=== PATIENT | male | born 1950 | race Caucasian/White ===

== ENCOUNTER 2017-06-03 15:46 | Inpatient (IN) | payer MEDICARE, BC ==
[2017-06-03 16:07] LABS: Hematocrit 36.2 % (42.0-52.0); Hemoglobin 12.1 gm/dL (13.5-18.0); Mean Cell Volume 100.8 fl (78-100); Mean Corpuscular Hemoglobin 33.7 pg (27-31); Mean Corpuscular Hgb Conc 33.4 g/dl (32-36); Mean Platelet Volume 10.5 fl (6.0-9.5); Neutrophil # 6.1 K/mm3 (1.3-6.0); Neutrophil % 75.9 % (42-75.0); Platelet Count 69 K/mm3 (150-450); Red Blood Count 3.59 M/mm3 (4.7-6.0); Red Cell Distribution Width 14.9 % (11.5-14.0)
--- OUTSIDE RECORDS SUMMARY | 2017-06-03 16:17 | XMS REPORT | CCD ---
:1950 Author Organization [facility] Allergies, Adverse Reactions, Alerts Substance Reaction Status povidone iodine topical Active Medications Medication Instructions Start Date End Date Status Vitamin D 50,000 intl units 1 cap(s) ( 50,000 International Unit ), po, Instructions: takes on 1st and 15th every month, 0 Refill(s), Type: Maintenance 11/11/2010 Ordered (1.25 mg) oral capsule takes on and 15th every month levothyroxine 150 mcg (0.15 1 tab(s) ( 0.15 mg ), po, 11/11/2010 Ordered mg) oral tablet daily, 0 Refill(s), Type: Maintenance Crestor 10 mg oral tablet 1 tab(s) ( 10 mg ), po, hs, 11/11/2010 Ordered 0 Refill(s), Type: Maintenance probenecid 500 mg oral tablet 2 tab(s) ( 1,000 mg ), po, 11/11/2010 Ordered bid, 0 Refill(s), Type: Maintenance Diovan HCT 160 mg-12.5 mg 1 tab(s), po, daily, 0 11/11/2010 Ordered oral tablet Refill(s), Type: Maintenance Vital Signs Most recent to oldest [Reference Range]: 1 2 Height 71.25 in (11/11/2010 09:40:00) Weight 252.60 lb (11/11/2010 09:40:00) Body Mass Index 34.98 kg/m2 (11/11/2010 09:40:00) Temperature Oral [96.4-99.1 DegF] 98.3 DegF (11/11/2010 09:40:00) Systolic Blood Pressure [90-140 mmHg] 158 mmHg 170 mmHg *HI* *HI* (11/11/2010 09:53:00) (11/11/2010 09:40:00) Diastolic Blood Pressure [60-90 mmHg] 90 mmHg 88 mmHg (11/11/2010 09:53:00) (11/11/2010 09:40:00) Mean Arterial Pressure 115 mmHg (11/11/2010 09:40:00) Peripheral Pulse Rate [60-100 bpm] 80 bpm (11/11/2010 09:40:00) Respiratory Rate [14-20 br/min] 20 br/min (11/11/2010 09:40:00) Allergies Verified? Yes (11/11/2010 09:40:00) Medication History Verified? Yes (11/11/2010 09:40:00) Medical History Verified? Yes (11/11/2010 09:40:00)
[2017-06-03 16:20] LABS: Albumin * 3.3 gm/dl (3.4-5.0); Anion Gap 16.1 mmol/L (6.8-13.8); BUN/Creatinine Ratio 12.1 (9.0-21.6); Bilirubin, Total 1.6 mg/dL (0.0-1.1); Ca. Corrected For Albumin 9.1 mg/dL (8.4-10.2); Calcium * 8.9 mg/dL (7.9-10.9); Carbon Dioxide 23.1 mmol/L (24-32.6); Potassium 4.2 mmol/L (3.4-4.6); Total Protein 6.8 gm/dL (6.2-8.2)
--- OUTSIDE RECORDS SUMMARY | 2017-06-03 17:18 | XMS REPORT | CCD ---
:1950 Author Organization [facility] Allergies, Adverse Reactions, Alerts Substance Reaction [...]
--- NOTE | 2017-06-03 17:23 | ERNOTE ---
Lower Extremity HPI - Narrative Date of Service: 06/03/17 - General Lower Extremities Pain: hip: left Time Seen by Provider: 06/03/17 16:00 Source: patient, EMS - patient fell twice today, unable to walk after second fall, left hip pain, EMS notes reviewed Exam Limitations: no limitations - Immun/Allergies/Home Medications Immunizations: IMMUNIZATION HX Immunizations Up to Date Yes History of Influenza Vaccine No Allergies/Adverse Reactions: Allergies Allergy/AdvReac Type Severity Reaction Status Date / Time adhesive Allergy Verified 06/03/17 16:15 iodine Allergy Verified 06/03/17 16:14 felodipine [From Plendil] AdvReac Verified 06/03/17 16:15 indomethacin AdvReac Verified 06/03/17 16:14 lorazepam [From Ativan] AdvReac Verified 06/03/17 16:14 meclizine AdvReac Verified 06/03/17 16:15 tizanidine AdvReac Verified 06/03/17 16:15 Home Medications: HOME MEDICATIONS Allopurinol [Zyloprim] 300 mg PO DAILY 06/03/17 [Last Taken Unknown] Aspirin 81 mg PO DAILY 06/03/17 [Last Taken Unknown] Diazepam [Valium] 5 - 10 mg PO TID PRN 06/03/17 [Last Taken Unknown] Fluocinonide/Emollient Base [Fluocinonide-E 0.05% Cream] 1 dose TP 06/03/17 [ Last Taken Unknown] Furosemide [Lasix] 40 mg PO BID 06/03/17 [Last Taken Unknown] Levothyroxine Sodium [Synthroid] 200 mcg PO DAILY 06/03/17 [Last Taken Unknown] Metoprolol Succinate [Toprol Xl] 100 mg PO DAILY 06/03/17 [Last Taken Unknown] Rosuvastatin Calcium [Crestor] 10 mg PO DAILY 06/03/17 [Last Taken Unknown] Sodium Bicarbonate 1,950 mg PO BID 06/03/17 [Last Taken Unknown] Ubidecarenone [Co Q-10] 10 mg PO DAILY 06/03/17 [Last Taken Unknown] Valsartan [Diovan] 320 mg PO DAILY 06/03/17 [Last Taken Unknown] Vitamin B12 06/03/17 [Last Taken Unknown] Vitamin D2 06/03/17 [Last Taken Unknown] oxyCODONE HCL/ACETAMINOPHEN [Oxycodone-Acetaminophen 5-325] 1 each PO QID PRN [Last Taken Unknown] - History of Present Illness Narrative: patient fell twice at home. has left hip pain Occurred: just prior to arrival Location of Incident: home Method of Injury: Reports: fell Reason for Fall: Reports: lost balance Loss of Consciousness: Reports: no loss of consciousness Modifying Factors - (Improves): Reports: other - nothhing Associated Symptoms: Reports: unable to bear weight, snapping, popping sensation , dizzy/light headedness Other Injuries: Reports: none Review of Systems - Review of Systems Constitutional: Present: weakness, fatigue EYE: Present: no symptoms reported ENT: Present: no symptoms reported Respiratory: Present: no symptoms reported Cardiology: Present: no symptoms reported Gastrointestinal/Abdominal: Present: no symptoms reported Genitourinary: Present: no symptoms reported Musculoskeletal: Present: See HPI, joint pain, other - paiin in left hip Skin: Present: no symptoms reported Neurological: Present: no symptoms reported Endocrine: Present: no symptoms reported Hematologic/Lymphatic: Present: no symptoms reported Psych: Present: no symptoms reported - Patient's Past Medical History Patient History - Medical: Arthritis, Hypothyroidism, Renal Failure Patient History - Cardiac/Respiratory: CVA/Stroke, Hypertension Patient History - Cancer: No Hx of Cancer Patient History - Surgical Procedures: Cataracts, Colonoscopy, EGD, Total Knee Replacement, Vasectomy, Hernia Repair Patient History - Other: None - Family History Family History:: no untoward family reactions to anesthesia, no familial bleeding tendencies - Family History Father Family History - Medical: Family History - Cardiac/Respiratory: No pertinent hx Family History - Cancer: No pertinent family hx Mother Family History - Medical: , Alzheimer's Disease Family History - Cardiac/Respiratory: No pertinent hx Family History - Cancer: No pertinent family hx - Social History Living Situations: home Psych History: No pertinent hx Smoking Status: Never smoker Have you smoked in the past 12 months: No Alcohol Use: rarely Drug Use: none - Immunizations Immunizations Up to Date: Yes History of Influenza Vaccine: No Physical Exam - Physical Exam General Appearance: Present: alert, moderate distress Head Exam: Present: normal inspection, no evidence of injury Eye Exam: Normal inspection: bilateral, PERRL: bilateral, EOMI: bilateral Ears, Nose, Throat: Present: normal ENT inspection Neck: Present: normal inspection, nontender Respiratory: Present: no respiratory distress, normal breath sounds, no accessory muscle use, chest nontender, lungs clear Cardiovascular/Chest: Present: regular rate, rhythm, no murmur, normal peripheral pulses Peripheral Pulses: N=norm/S=strong/W=weak/B=bound/A=absent: Carotid (R): Normal , Carotid (L): Normal, Radial (R): Normal, Radial (L): Normal, Femoral (R): Normal, Femoral (L): Normal, Dorsalis-pedis (R): Normal, Dorsalis-pedis (L): Normal Gastrointestinal/Abdominal: Present: normal bowel sounds, nontender, nondistended, soft, no organomegaly Back Exam: Present: normal inspection, normal range of motion, no CVA tenderness Extremity Exam: Present: normal inspection, non-tender, normal range of motion, no edema Neurological Exam: Present: alert, oriented, normal mood/affect, no motor/ sensory deficits DTR: N=norm/NB=norm/brisk/A=abs/DD=dull/dimin/HC=hyperactive: Bicep (R): Normal , Bicep (L): Normal, Tricep (R): Normal, Tricep (L): Normal, Knee (R): Normal, Knee (L): Normal, Ankle (R): Normal, Ankle (L): Normal ED Progress - Results and Orders Patient's Lab Results:: I have reviewed the patient's lab results. - Vital Signs Patient's Vital Signs:: I have reviewed the patient's vital signs. Vital Signs: Vital Signs 06/03/17 15:49 Temperature 37.3 C Pulse Rate 72 Respiratory 18 Rate Blood Pressure 153/77 O2 Sat by Pulse 99 Oximetry - Progress/Reassessment Chief Complaint: Hip Pain/Injury Progress:: Unchanged - case discussed with dr faith and attending dr moore to be admitted - Transfer of Care Expected Disposition: Admit - dr moore Departure Clinical Impression: Hip fracture, intertrochanteric - Departure Disposition: [facility] Condition: Fair Referrals: Nanda Moore DO [Primary Care Provider] -
[2017-06-03] MEDS ORDERED: ONDANSETRON HCL/PF 2 MG/ML VIAL IV PRN (19:48)
--- NOTE | 2017-06-03 20:24 | HP ---
Chief Complaint - Chief Complaint Date of Service: 06/03/17 Time of Service: 19:51 Chief Complaint: " Fall, LT hip pain,". Source of HPI- Pt; reliable, ER provider notes. History of Present Illness: Mr. Caal is a 67-yr-old WM pt of Dr. Nanda Moore with a PMH of: Athritis, CVA, CKD stage IV, Degenerative Disc Disease, Gout, Hypothyroidism, Peripheral Neuropathy,Spinal Stenosis, & Thrombocytopenia. Pt states that he tripped on his foot while walking at home leading him to fall. He landed on the LT side of body. He denies his head hitting surface or any object and there was no loss of consciousness. EMS was called and he was brought to [facility] ER. At the ED, the Hip/Pelvis X-ray film showed he sustained a LT hip fracture. Orthopedic Surgeon , (), was consulted by the ERP and he plans to perform surgical repair tomorrow. Pt denies fevers, chills. He also denies N/V,Abd. Pain, chest pain & SOB. He will need to be admitted inpatient for a minimum of 2 midnights due to the need for surgical procedure that requires pre & post operative management. - Patient's Past Medical History Patient History - Medical: Arthritis, Hypothyroidism, Renal Failure, Other - CKD stage IV, Degenerative Disc Disease, Gout, Hypothyroidism, Peripheral Neuropathy,Spinal Stenosis, & Thrombocytopenia. Patient History - Cardiac/Respiratory: CVA/Stroke, Hypertension Patient History - Cancer: No Hx of Cancer Patient History - Surgical Procedures: Cataracts, Colonoscopy, EGD, Total Knee Replacement, Vasectomy, Hernia Repair Patient History - Other: None - Family History Family History:: no untoward family reactions to anesthesia, no familial bleeding tendencies - Family History Father Family History - Medical: Family History - Cardiac/Respiratory: No pertinent hx Family History - Cancer: No pertinent family hx Mother Family History - Medical: , Alzheimer's Disease Family History - Cardiac/Respiratory: No pertinent hx Family History - Cancer: No pertinent family hx - Social History Living Situations: home Psych History: No pertinent hx Smoking Status: Never smoker Have you smoked in the past 12 months: No Do you dip or chew tobacco: No Alcohol Use: rarely Drug Use: none - Immunizations Immunizations Up to Date: Yes History of Influenza Vaccine: No Review Of Systems (GEN) - Review of Systems Generalized/Overall Review: Absent: Weakness, Chills, Fever, Malaise EENTM: Absent: Eye Pain, Blurred Vision, Double Vision Respiratory: Absent: Cough, Shortness of Breath, Orthopnea Cardiac: Absent: Chest Pain, Edema, Palpitations Abdominal: Absent: Nausea, Vomiting, Hematemesis, Abdominal Pain, Constipation, Diarrhea, Melena Genitourinary: Absent: Burning, Itching, Urgency, Hesitancy Musculoskeletal: Present: Joint Pain, Back Pain, Joint Swelling. Absent: Muscle Pain Neurological: Absent: Headache, Anxiety, Depressed, Emotional Problems, Weakness Skin: Absent: Dryness, Lesions Endocrine: Absent: Intolerance to Cold, Flushing, Increased Thirst Misc: All systems neg except as marked Immunizations: IMMUNIZATION HX Immunizations Up to Date Yes History of Influenza Vaccine No Allergies/Adverse Reactions: Allergies Allergy/AdvReac Type Severity Reaction Status Date / Time adhesive Allergy Verified 06/03/17 16:15 iodine Allergy Verified 06/03/17 16:14 felodipine [From Plendil] AdvReac Verified 06/03/17 16:15 indomethacin AdvReac Verified 06/03/17 16:14 lorazepam [From Ativan] AdvReac Verified 06/03/17 16:14 meclizine AdvReac Verified 06/03/17 16:15 tizanidine AdvReac Verified 06/03/17 16:15 Home Medications: HOME MEDICATIONS Allopurinol [Zyloprim] 300 mg PO DAILY 06/03/17 [Last Taken Unknown] Aspirin 81 mg PO DAILY 06/03/17 [Last Taken Unknown] Cyanocobalamin (Vitamin B-12) [Vitamin B12] 2,500 mcg PO 3XW 06/03/17 [Last Taken Unknown] Diazepam [Valium] 5 - 10 mg PO TID PRN 06/03/17 [Last Taken Unknown] Ergocalciferol (Vitamin D2) [Vitamin D2] 50,000 unit PO Q14D 06/03/17 [Last Taken Unknown] Fluocinonide/Emollient Base [Fluocinonide-E 0.05% Cream] 1 dose TP BID 06/03/17 [Last Taken Unknown] Furosemide [Lasix] 40 mg PO BID 06/03/17 [Last Taken Unknown] Levothyroxine Sodium [Synthroid] 200 mcg PO DAILY 06/03/17 [Last Taken Unknown] Metoprolol Succinate [Toprol Xl] 100 mg PO DAILY 06/03/17 [Last Taken Unknown] Rosuvastatin Calcium [Crestor] 10 mg PO DAILY 06/03/17 [Last Taken Unknown] Sodium Bicarbonate 1,950 mg PO BID 06/03/17 [Last Taken Unknown] Ubidecarenone [Co Q-10] 10 mg PO 3XW 06/03/17 [Last Taken Unknown] Valsartan [Diovan] 320 mg PO DAILY 06/03/17 [Last Taken Unknown] oxyCODONE HCL/ACETAMINOPHEN [Oxycodone-Acetaminophen 5-325] 1 each PO QID PRN [Last Taken Unknown] Exam - Exam Vital Signs: Vital Signs - Last Taken Temp 37.2 C 06/03/17 18:36 Pulse 68 06/03/17 18:36 Resp 16 06/03/17 18:36 BP 158/80 06/03/17 18:36 Pulse Ox 97 06/03/17 18:36 Constitutional: Present: Alert, Oriented x3, Cooperative, No distress ENT Exam: Present: normal ENT inspection, hearing grossly normal, dry mucous membranes. Absent: nasal drainage, pharyngeal erythema Eye Exam: bilateral eye: normal inspection, PERRL Neck: Present: non-tender, full range of motion, supple Back Exam: Present: normal inspection, no CVA tenderness Breasts: Present: Exam deferred Respiratory: Present: lungs clear Cardiovascular/Chest: Present: regular rate, rhythm, no chest tenderness, no JVD , systolic murmur Abdomen: Present: Normal bowel sounds, soft, nontender /Rectal: Present: Exam deferred Extremity: Present: lower extremity edema - Non-pitting BLE Edema, leg pain - Limited ROM on LLE Skin Exam: Present: warm/dry, no cyanosis Lymphatic: Present: no adenopathy Neurologic: Present: no motor/sensory deficits, alert, normal mood/affect, oriented x 3 Appearance: Present: appropriate appearance, appropriate insight Eye contact: Present: cooperative, good eye contact, normal speech Thoughts: Present: normal thought pattern, no apparent hallucination Diagnostic Studies: Laboratory Results WBC 8.0 K/mm3 (4.0-10.5) 06/03/17 16:02 RBC 3.59 M/mm3 (4.7-6.0) L 06/03/17 16:02 Hgb 12.1 gm/dL (13.5-18.0) L 06/03/17 16:02 Hct 36.2 % (42.0-52.0) L 06/03/17 16:02 MCV 100.8 fl (78-100) H 06/03/17 16:02 MCH 33.7 pg (27-31) H 06/03/17 16:02 MCHC 33.4 g/dl (32-36) 06/03/17 16:02 RDW 14.9 % (11.5-14.0) H 06/03/17 16:02 Plt Count 69 K/mm3 (150-450) L 06/03/17 16:02 MPV 10.5 fl (6.0-9.5) H 06/03/17 16:02 Immature Gran % (Auto) 0.60 % (0.001-0.429) H 06/03/17 16:02 Immature Gran # (Auto) 0.05 K/mm3 (0.000-0.0310) H 06/03/17 16:02 Neutrophils % 75.9 % (42-75.0) H 06/03/17 16:02 Lymphocytes % 9.0 % (20-51) L 06/03/17 16:02 Monocytes % 12.0 % (0.0-9) H 06/03/17 16:02 Eosinophils % 2.4 % (0.0-3.0) 06/03/17 16:02 Basophils % 0.1 % (0.0-1.0) 06/03/17 16:02 Nucleated RBC % 0.0 k/mm3 (0-1) 06/03/17 16:02 Neutrophils # 6.1 K/mm3 (1.3-6.0) H 06/03/17 16:02 Lymphocytes # 0.7 k/mm3 (1.5-3.5) L 06/03/17 16:02 Monocytes # 1.0 k/mm3 (0.0-1.0) 06/03/17 16:02 Eosinophils # 0.2 k/mm3 (0.0-0.7) 06/03/17 16:02 Absolute Basophils 0.0 k/mm3 (0.0-0.1) 06/03/17 16:02 Sodium 142 mmol/L (132-142) 06/03/17 16:02 Plasma Sodium 142 mmol/L (130-142) 06/03/17 16:02 Potassium 4.2 mmol/L (3.4-4.6) 06/03/17 16:02 Chloride 107 mmol/L (97-106) H 06/03/17 16:02 Carbon Dioxide 23.1 mmol/L (24-32.6) L 06/03/17 16:02 Anion Gap 16.1 mmol/L (6.8-13.8) H 06/03/17 16:02 BUN 28 mg/dL (6-23) H 06/03/17 16:02 Creatinine 2.31 mg/dL (0.4-1.4) H 06/03/17 16:02 Est GFR (Non-Af Amer) 30 mL/min (60-130) L 06/03/17 16:02 BUN/Creatinine Ratio 12.1 (9.0-21.6) 06/03/17 16:02 Random Glucose 119 mg/dL (70-110) H 06/03/17 16:02 Calcium 8.9 mg/dL (7.9-10.9) 06/03/17 16:02 Calcium Adj for Albumin 9.1 mg/dL (8.4-10.2) 06/03/17 16:02 Total Bilirubin 1.6 mg/dL (0.0-1.1) H 06/03/17 16:02 AST 43 U/L (0-48) 06/03/17 16:02 ALT 34 U/L (19-67) 06/03/17 16:02 Alkaline Phosphatase 160 U/L (50-170) 06/03/17 16:02 Total Protein 6.8 gm/dL (6.2-8.2) 06/03/17 16:02 Albumin 3.3 gm/dl (3.4-5.0) L 06/03/17 16:02 Assessment/Plan - Assessment/Plan (1) Fracture of left hip Assessment: Mr. Caal is a 67 yr Male pt who sustained a LT hip fracture following a fall at home. Orthopedic surgeon consulted by the ERP and plans to perform surgery once medically cleared. The EKG obtained at the ED showed NSR. The CXR showed possible increased vascular congestion, but he does not appear SOB. Most of the lab-work results were unremarkable except for elevated BUN/CR and low platelets which are chronic conditions. According to [facility] he is at class IV which is a high risk for a major cardiac event pre/post operatively. However, the benefits of doing surgery outweighs the risk of not doing any, provides him opportunity to return to functional status & therefore, may proceed with surgery as planned. Will provide supportive cares in the meantime with: IVF hydration, pain mgt, Keep NPO, Bedrest activity. Problem: Acute (2) Chronic kidney disease, stage 4, severely decreased GFR Assessment: Is at baseline. Provide IVF hydration. Continue sodium Bicarb. BMP in am. Laboratory Tests 11/22/16 04/29/17 05/20/17 13:21 08:00 07:50 Creatinine 2.45 H 2.27 H 2.36 H 06/02/17 06/03/17 13:03 16:02 Creatinine 2.24 H 2.31 H Problem: Chronic (3) Heart failure Assessment: The CXR shows cardiomegaly and possible increased vascular congestion. He is noted to have Bilateral Non -pitting edema. He is not SOB and is already on Lasix PO. Spouse reports the swelling is better. Problem: Suspected (4) HTN (hypertension) Assessment: Stable- Continue Valsartan & Metoprolol. Problem: Chronic Qualifiers: Hypertension type: essential hypertension Qualified Code(s): I10 - Essential (primary) hypertension (5) Gout Assessment: Stable- On Allopurinol. Problem: Chronic (6) CVA (cerebral vascular accident) Assessment: Stable- Continue Aspirin. Problem: Chronic (7) Back pain Problem: Chronic (8) Peripheral neuropathy Problem: Chronic (9) Thrombocytopenia Assessment: Is of unclear etiology. Laboratory Tests 10/14/15 04/05/16 05/04/16 08:00 07:34 12:16 Plt Count 77 L 83 L 79 L 11/01/16 11/22/16 04/29/17 13:12 13:21 08:00 Plt Count 110 L 76 L 77 L 06/03/17 16:02 Plt Count 69 L Problem: Chronic
[2017-06-03] MEDS: HYDROmorphone HCL 1 MG/ML DISP.SYRIN IV PRN ×2 (20:33→22:30)
[2017-06-03] MEDS: NORMAL SALINE 1,000 ML IV PRN (20:34)
[2017-06-03] MEDS ORDERED: DIAZEPAM 5 MG TABLET PO PRN (21:09)
[2017-06-03] MEDS ORDERED: oxyCODONE HCL/ACETAMINOPHEN 1 TAB TABLET PO PRN (21:12)
[2017-06-03] MEDS ORDERED: UBIDECARENONE 10 MG PO SCH (21:15)
[2017-06-03] MEDS: FUROSEMIDE 40 MG TABLET PO SCH (21:45)
[2017-06-03 23:32] LABS: INR 1.07 INR (0.90-1.10); Partial Thrombolplastin Time 29.2 Seconds (24-32); Prothrombin Time (Patient) 11.1 Seconds (9.4-11.4)
[2017-06-04] MEDS: HYDROmorphone HCL 1 MG/ML DISP.SYRIN IV PRN ×3 (00:02→06:41)
[2017-06-04] MEDS: NORMAL SALINE 1,000 ML IV PRN (05:28)
[2017-06-04] MEDS ORDERED: TRANEXAMIC ACID 1,000 MG in NORMAL SALINE 100 ML IV PRN (06:00)
[2017-06-04 06:12] LABS: Hematocrit 36.5 % (42.0-52.0); Hemoglobin 11.7 gm/dL (13.5-18.0); Mean Cell Volume 104.6 fl (78-100); Mean Corpuscular Hemoglobin 33.5 pg (27-31); Mean Corpuscular Hgb Conc 32.1 g/dl (32-36); Mean Platelet Volume 11.9 fl (6.0-9.5); Neutrophil # 6.4 K/mm3 (1.3-6.0); Neutrophil % 70.3 % (42-75.0); Platelet Count 78 K/mm3 (150-450); Red Blood Count 3.49 M/mm3 (4.7-6.0); Red Cell Distribution Width 15.4 % (11.5-14.0); White Blood Count 9.1 K/mm3 (4.0-10.5)
[2017-06-04 06:32] LABS: Anion Gap 13.9 mmol/L (6.8-13.8); BUN/Creatinine Ratio 12.4 (9.0-21.6); Calcium * 8.5 mg/dL (7.9-10.9); Carbon Dioxide 25.3 mmol/L (24-32.6); Estimated Creat Clear 34.1; Potassium 4.2 mmol/L (3.4-4.6)
[2017-06-04] MEDS: LEVOTHYROXINE SODIUM 100 MCG TABLET PO SCH (07:00)
[2017-06-04] MEDS ORDERED: ceFAZolin SODIUM/DEXTROSE,ISO 2 GM/50 ML BAG IV ONE (07:10)
[2017-06-04] MEDS ORDERED: ceFAZolin SODIUM 1 GM/10 ML ML IV PRN (07:16)
--- NOTE | 2017-06-04 07:38 | CONS ---
HPI - General Date of Service: 06/04/17 Narrative: Mr. Caal is a 67 yo M who sustained a displaced L femoral neck fracture after a mechanical fall on the sidewalk. He is a community ambulator who lives at home with his . He presented to the [facility] ED for evaluation which revealed the above injury. He was admitted to the hospital with plan for surgery this morning. - History of Present Illness Allergies/Adverse Reactions: Allergies adhesive Allergy (Verified 06/03/17 16:15) iodine Allergy (Verified 06/03/17 16:14) felodipine [From Plendil] Adverse Reaction (Verified 06/03/17 16:15) indomethacin Adverse Reaction (Verified 06/03/17 16:14) lorazepam [From Ativan] Adverse Reaction (Verified 06/03/17 16:14) meclizine Adverse Reaction (Verified 06/03/17 16:15) tizanidine Adverse Reaction (Verified 06/03/17 16:15) Home Medications: Home Medications Medication Instructions Recorded Last Taken Allopurinol [Zyloprim] 300 mg PO DAILY 06/03/17 Unknown Aspirin 81 mg PO DAILY 06/03/17 Unknown Cyanocobalamin (Vitamin B-12) 2,500 mcg PO 3XW 06/03/17 Unknown [Vitamin B12] Diazepam [Valium] 5 - 10 mg PO TID PRN 06/03/17 Unknown Ergocalciferol (Vitamin D2) 50,000 unit PO Q14D 06/03/17 Unknown [Vitamin D2] Fluocinonide/Emollient Base 1 dose TP BID 06/03/17 Unknown [Fluocinonide-E 0.05% Cream] Furosemide [Lasix] 40 mg PO BID 06/03/17 Unknown Levothyroxine Sodium [Synthroid] 200 mcg PO DAILY 06/03/17 Unknown Metoprolol Succinate [Toprol Xl] 100 mg PO DAILY 06/03/17 Unknown Rosuvastatin Calcium [Crestor] 10 mg PO DAILY 06/03/17 Unknown Sodium Bicarbonate 1,950 mg PO BID 06/03/17 Unknown Ubidecarenone [Co Q-10] 10 mg PO 3XW 06/03/17 Unknown Valsartan [Diovan] 320 mg PO DAILY 06/03/17 Unknown oxyCODONE HCL/ACETAMINOPHEN 1 each PO QID PRN 06/03/17 Unknown [Oxycodone-Acetaminophen 5-325] - Patient's Past Medical History Patient History - Medical: Arthritis, Hypothyroidism, Renal Failure, Other - CKD stage IV, Degenerative Disc Disease, Gout, Hypothyroidism, Peripheral Neuropathy,Spinal Stenosis, & Thrombocytopenia. Patient History - Cardiac/Respiratory: CVA/Stroke, Hypertension Patient History - Cancer: No Hx of Cancer Patient History - Surgical Procedures: Cataracts, Colonoscopy, EGD, Total Knee Replacement, Vasectomy, Hernia Repair Patient History - Other: None - Family History Family History:: no untoward family reactions to anesthesia, no familial bleeding tendencies - Family History Father Family History - Medical: Family History - Cardiac/Respiratory: No pertinent hx Family History - Cancer: No pertinent family hx Mother Family History - Medical: , Alzheimer's Disease Family History - Cardiac/Respiratory: No pertinent hx Family History - Cancer: No pertinent family hx - Social History Living Situations: home Abuse History: No History of abuse Psych History: No pertinent hx Smoking Status: Never smoker Have you smoked in the past 12 months: No Do you dip or chew tobacco: No Alcohol Use: rarely Drug Use: none - Immunizations Immunizations Up to Date: Yes History of Influenza Vaccine: No Procedures CLOSED ENDOSCOPIC BIOPSY OF LARGE INTESTINE (07/14/05) ENDOSC POLYPECTOMY OF LG INTEST (09/04/08) OTHER OPEN UMBILICAL HERNIORRHAPHY (11/09/11) Medications - Medications Current Medications: Current Medications Furosemide (Lasix) 40 mg PO BID [id number] Stop: 07/03/17 21:16 Last Admin: 06/03/17 21:45 Dose: Not Given Hydromorphone HCl (Dilaudid) 0.5 mg IV Q1H PRN PRN Reason: Mild pain Stop: 07/03/17 19:48 Last Admin: 06/04/17 06:41 Dose: 0.5 mg Sodium Chloride (Sodium Chloride 0.9%) 1,000 mls @ 100 mls/hr IV .Q10H PRN PRN Reason: HYDRATION Stop: 07/03/17 19:49 Last Admin: 06/04/17 05:28 Dose: 100 mls/hr Ondansetron HCl (Zofran) 4 mg IV Q4H PRN PRN Reason: Nausea Stop: 07/03/17 19:49 Last Admin: 06/04/17 03:09 Dose: 4 mg Physical Examination - Exam Narrative: Gen: A&Ox3, NAD Resp: breathing non-labored on RA MSK: LLE--> shortened and externally rotated, TTP about hip, SILT, 5/5 EHL/FHL/ DF/PF, palpable DP/PT Radiology: Plain films of the L hip and AP pelvis from the ED demonstrate a displaced midcervical femoral neck fracture on the left. Mild DJD of both hips. Vital Signs: Vital Signs - Last Taken Temp 36.3 C L 06/04/17 07:16 Pulse 70 06/04/17 07:16 Resp 18 06/04/17 07:16 BP 160/70 06/04/17 07:16 Pulse Ox 95 06/04/17 07:16 O2 Oxygen Delivery Method Room Air - Results and Findings: Narrative: 67 yo M community ambulator with displaced L femoral neck fracture. - Discussed treatment options with the patient and his . Based on the fracture pattern, his age, and his activity level, I recommended left total hip arthroplasty. I discussed the risks of surgery in detail today including, but not limited to, infection, bleeding, neurovascular injury, intraoperative fracture, implant failure/loosening, persistent pain, stiffness, leg length discrepancy, wound complications, DVT/PE, and risks with anesthesia. After discussion, he would like to proceed with L total hip arthroplasty. Informed consent obtained. - Proceed with L total hip arthroplasty this am - 2g ancef pre-op - admit back to Med/Surg postoperatively - continue Medicine co-management Lab/Microbiology results last 24 hrs: Abnormal/Pending Laboratory Last 24 HRS 06/04/17 06/04/17 05:30 05:30 RBC 3.49 L Hgb 11.7 L Hct 36.5 L MCV 104.6 H MCH 33.5 H RDW 15.4 H Plt Count 78 L MPV 11.9 H Immature Gran % (Auto) 0.50 H Immature Gran # (Auto) 0.05 H Lymphocytes % 9.7 L Monocytes % 12.1 H Eosinophils % 7.2 H Neutrophils # 6.4 H Lymphocytes # 0.9 L Monocytes # 1.1 H Chloride 107 H Anion Gap 13.9 H BUN 27 H Creatinine 2.18 H Est GFR (Non-Af Amer) 32 L Random Glucose 131 H - Assessments/Findings (1) Fracture of left hip Problem: Acute
[2017-06-04] MEDS: METOPROLOL SUCCINATE 100 MG TABLET.SA PO SCH ×2 (07:41→09:00)
[2017-06-04] MEDS ORDERED: NORMAL SALINE 1,000 ML IV ONE ×3 (07:55→10:00)
[2017-06-04] MEDS ORDERED: RINGER'S SOLUTION,LACTATED 1,000 ML IV ONE (08:45)
[2017-06-04] MEDS ORDERED: ASPIRIN 81 MG TAB.CHEW PO SCH (09:00)
[2017-06-04] MEDS: FLUOCINONIDE 15 APPL TUBE TP SCH ×2 (09:00→20:16)
[2017-06-04] MEDS: FUROSEMIDE 40 MG TABLET PO SCH ×2 (09:00→20:19)
[2017-06-04] MEDS: SODIUM BICARBONATE 650 MG TABLET PO SCH ×2 (09:00→20:17)
[2017-06-04] MEDS ORDERED: MAG HYDROX/ALUMINUM HYD/SIMETH 30 ML UDC PO PRN (10:57)
[2017-06-04] MEDS ORDERED: ONDANSETRON HCL/PF 2 MG/ML VIAL IV PRN (10:57)
[2017-06-04] MEDS ORDERED: MAGNESIUM HYDROXIDE 30 ML UDC PO PRN (10:57)
[2017-06-04] MEDS ORDERED: PROMETHAZINE HCL 5 MG in DEXTROSE 5 % IN WATER 50 ML IV PRN ×2 (10:57)
[2017-06-04] MEDS ORDERED: ACETAMINOPHEN 500 MG TABLET PO PRN (10:57)
[2017-06-04] MEDS ORDERED: MORPHINE SULFATE 2 MG/ML DISP.SYRIN IV PRN (10:57)
--- NOTE | 2017-06-04 11:13 | OR ---
Operative Report - Dictated Report Narrative: Date: 06/04/2017 Preoperative diagnosis: Closed left hip displaced femoral neck fracture. Postoperative diagnosis: Closed left hip displaced femoral neck fracture Procedure: Left cemented total hip arthroplasty. Surgeon: Jeremy Viera M.D. Patient Scheduling Manager: Alan David PA-C Anesthesia: Gen. Complications: None Specimens: Bone for disposal, synovial tissue for permanent section Estimated blood loss: 200 milliliters. Retained implants: Depuy [place] size 6 basic cemented femoral stem. Size 58 millimeter ouside diameter 3-hole [place] Gription acetabular cup. 58 millimeter outside by 36 millimeter inside diameter highly cross-linked acetabular liner. 36 millimeter diameter + 12 millimeter cobalt chromium femoral head. Cancellous 6.5mm screw 30 millimeter length. Indications: Bolivar Is a 67-year-old male community ambulator. This patient was evaluated on the floor and found to have sustained a displaced femoral neck fracture. The risks and benefits were discussed with the patient as well as any power of countersinker. Patient wished to proceed with surgical treatment. The risks, benefits, and alternatives discussed were , blood clots, bleeding, infection, nerve/tendon blood vessel/ injury, malposition of components, dislocation and/or instability of joint, intraoperative fracture, postoperative limited range of motion, persistent pain, failure of components, and need for additional procedures. Patient wished to proceed. Consent was obtained after answering all questions. Procedure: After marking the correct extremity on the floor, the patient was taken to the operating room. A timeout was performed. IV antibiotics consisting of 2 g of Ancef were administered prior to the procedure. A general anesthetic was induced by anesthesia. The patient was then transitioned to a lateral position on a well-padded pegboard. And an axillary roll was placed. The head was in neutral position. The non-operative down leg was well-padded with SCD and ALAN hose in place. The arms were supported and padded to protect from any undue pressure on the bony prominences and nerves. Well-padded anterior and posterior pelvic and chest posts were secured in order to maintain a stable position of the pelvis. This was placed so that the pelvis was perpendicular to the floor. The body was in line with the pelvis. Once it was felt that we had protected all the bony prominences and the patient was well secured with a safety belt as well, the leg was pre-scrubbed with alcohol, prepped and draped in a standard sterile fashion. A standard anterior lateral hip incision was marked out over the greater trochanter. [place]an drapes were then placed. The skin incision was then made. Sharp dissection with a scalpel utilizing cautery for hemostasis was carried out down to the gluteus and iliotibial band fascia. This was split in line with the skin incision. The greater trochanter bursa was excised. 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 We also encountered a large amount of proliferative tissue surrounding the chronically torn abductor which was brownish in color. This had an appearance similar to PVNS, so we proceeded to debride as much of this tissue as we could and we sent it for permanent section. Was left of the anterior 1/3 of the tendon was tagged and reflected off the greater trochanter. This exposed the underlying hip joint capsule. An inverted T-type capsulotomy was made extending this up to the brim of the acetabulum. We encountered a hematoma at this point confirming an acute fracture as well as noted displacement of the femoral neck fracture. We did not encounter any more of this proliferative-looking tissue inside the joint. Using Eduar retractors to assist with elevation of the soft tissues off the anterior, superior, and inferior aspects of the femoral neck, the hip was then placed in a figure 4 position and the femoral neck cleanup cut was then made. With the leg in an externally rotated and adducted position, the cutting flag was utilized in order to petra for a standard femoral neck cut approximately a fingerbreadth above the level of the lesser trochanter. This was done while protecting the surrounding soft tissues with Eduar retractors. The femoral head was then removed and sized for guidance on the size of the acetabular shell. It was noted that there was mild loss of articular cartilage on both the femoral head and weightbearing portions of the acetabulum. We then returned the leg to the table and turned our attention to the acetabulum. While protecting the surrounding soft tissues, the labrum and remaining tissue in the fovea were excised using a scalpel and cautery. A series of reamers up to size 57 millimeter were utilized to prepare the acetabulum. The final reamer had good purchase and exposed the bleeding subchondral bone. The acetabulum was then thoroughly irrigated ensuring that all bony and cartilaginous materials were removed and the final acetabular shell was impacted into place. This was placed in approximately 45 degrees of abduction and 20 degrees of anteversion utilizing the outrigger and body axis for alignment. This had a good press fit. One 6.5 x 30mm cancellous screw was placed in the posterior superior quadrant of the acetabulum. The shell was then thoroughly irrigated and the final polyethylene was impacted into place ensuring that it seated completely. This was then protected with a sponge while we returned our attention to the femur. With the leg in a figure 4 position utilizing Eduar retractors for soft tissue protection, a box cutting osteotome, followed by Charnley awl, followed by serial broaches were utilized in order to prepare the femur. It was found that a size 6 broach gave good axial and rotational stability. The proximal femur was visualized to ensure that there were no signs of fracture. A series of heads were trialed. It was found that a + 12 mm femoral head gave good overall stability. There is minimal longitudinal instability. With the leg in the position of sleep the femoral head was well covered. Hip range of motion was able to reach full extension and external rotation to greater than 75 degrees prior to impingement along the posterior acetabulum. The hip was able to be flexed to greater than 90 degrees with internal rotation greater than 60 degrees prior to anterior impingement. The limb lengths were near equal based on comparison to the contralateral side. At this point was felt this was the appropriately sized femoral components as well as neck and femoral head. The trial implants were removed. A canal cement plug was placed distally and the canal was thoroughly irrigated using pulsatile vacuum brush device. The canal was then thoroughly dried with a suction device and canal sponge. Cement was vacuum mixed per the log scaler' s instructions and placed into a cement gun. Cement was then placed in a dry irrigated femur and a moderate cementing technique using a pressurizing device. The stem was then placed in the appropriate version compared to her lower brule anatomy and held in place while the cement cured and the extruded cement was removed. Once the cement was fully cured we ensured that the stem was stable and that there were no signs of fracture. The extruded cement was removed, and the joint and the capsule were thoroughly evaluated to ensure there are no cement fragments. Once was felt that we adequately removed the extra cement and that the joint was prepared for final implants, the final femoral head was then impacted in the place. The hip was then reduced and seated completely. The capsule was repaired with interrupted #1 Ethibond. What was left of the anterior abductor tendon was repaired to the greater trochanter utilizing #5 Ethibond through drill holes. This was oversewn with #1 Vicryl. The fascia was closed with interrupted #1 Vicryl. The wounds were thoroughly irrigated as we closed in layers. The deep fat layers were closed with 0 Vicryl and the dermis was approximated with interrupted 3-0 Vicryl. The skin was closed with a running subcuticular 3-0 monocryl and a Prineo dressing. All sponge, needle, blade, and instrument counts were correct prior to closing the wounds. Sterile dressings consisting of Xeroform, 4 x 4's, ABD, and tape were applied. The patient was awoken and transferred to his hospital bed and then to the postanesthesia care unit in stable condition. Postoperative condition: The plan is to return to the medical/surgical inpatient floor postoperatively. Postoperatively 24 hours of IV antibiotics, pain control, physical therapy, occupational therapy, and medical comanagement will be utilized. Patient will be weightbearing as tolerated with anterior hip precautions. Postoperative films will be obtained in the recovery room.
[2017-06-04] MEDS: DEXTROSE 5%-LACTATED RINGERS 1,000 ML IV PRN ×2 (11:48→19:47)
[2017-06-04] MEDS: oxyCODONE HCL/ACETAMINOPHEN 1 TAB TABLET PO PRN ×2 (12:14→18:39)
[2017-06-04] MEDS ORDERED: ceFAZolin SODIUM 2 GM in DEXTROSE 5 % IN WATER 100 ML IV SCH ×2 (13:30)
[2017-06-04] MEDS: LOSARTAN POTASSIUM 50 MG TABLET PO SCH (14:31)
[2017-06-04] MEDS: ALLOPURINOL 300 MG TABLET PO SCH (14:32)
[2017-06-04] MEDS: ROSUVASTATIN CALCIUM 10 MG TABLET PO SCH (14:33)
[2017-06-04] MEDS: ceFAZolin SODIUM/DEXTROSE,ISO 2 GM/50 ML BAG IV SCH ×2 (14:36→19:49)
[2017-06-04] MEDS ORDERED: POLYVINYL ALCOHOL 150 DROP BTL EACHEYE PRN (16:14)
[2017-06-04] MEDS: SENNOSIDES/DOCUSATE SODIUM 1 TAB TABLET PO SCH (20:17)
--- NOTE | 2017-06-04 20:42 | PN ---
Subjective - Date and Time Seen Date: 06/04/17 Time: 20:42 Subjective Narrative: Mr. Caal examined. Had LT hip surgery today 06/04. He has no complains. Pain is well controlled. No other issues according to nursing. Objective - Vitals Vitals: Last Vital Signs Temp 36.6 C 06/04/17 19:30 Pulse 68 06/04/17 20:19 Resp 20 06/04/17 19:30 BP 135/76 06/04/17 20:19 Pulse Ox 95 06/04/17 19:30 - Abnormal Lab Findings Abnormal Lab Findings: Abnormal Lab Results 06/04/17 06/04/17 Range/Units 05:30 05:30 RBC 3.49 L (4.7-6.0) M/mm3 Hgb 11.7 L (13.5-18.0) gm/dL Hct 36.5 L (42.0-52.0) % MCV 104.6 H (78-100) fl MCH 33.5 H (27-31) pg RDW 15.4 H (11.5-14.0) % Plt Count 78 L (150-450) K/mm3 MPV 11.9 H (6.0-9.5) fl Immature Gran % (Auto) 0.50 H (0.001-0.429) % Immature Gran # (Auto) 0.05 H (0.000-0.0310) K/mm3 Lymphocytes % 9.7 L (20-51) % Monocytes % 12.1 H (0.0-9) % Eosinophils % 7.2 H (0.0-3.0) % Neutrophils # 6.4 H (1.3-6.0) K/mm3 Lymphocytes # 0.9 L (1.5-3.5) k/mm3 Monocytes # 1.1 H (0.0-1.0) k/mm3 Chloride 107 H (97-106) mmol/L Anion Gap 13.9 H (6.8-13.8) mmol/L BUN 27 H (6-23) mg/dL Creatinine 2.18 H (0.4-1.4) mg/dL Est GFR (Non-Af Amer) 32 L (60-130) mL/min Random Glucose 131 H (70-110) mg/dL - Exam Constitutional: Present: Alert, Oriented x3, Cooperative, No distress ENT Exam: Present: normal ENT inspection, hearing grossly normal Neck: Present: full range of motion, supple, normal inspection Breasts: Present: Exam deferred Respiratory: Present: lungs clear, no accessory muscle use, No wheezing Cardiovascular/Chest: Present: regular rate, rhythm, systolic murmur Abdomen: Present: Normal bowel sounds, soft, nontender, obese /Rectal: Present: Other - Gray Catheter. Extremity: Present: lower extremity edema - Non Pitting BLE, Surgical site intact., other Skin Exam: Present: warm/dry, no cyanosis Neurologic: Present: no motor/sensory deficits, alert, oriented x 3. Absent: dizzy/light-headedness Appearance: Present: appropriate appearance, appropriate insight Eye contact: Present: cooperative, good eye contact, normal speech Thoughts: Present: normal thought pattern, no apparent hallucination Cauti Physician Documentation - Urinary Catheter Management Urethral (Gray) Urethral Indwelling: Yes Reason for Continuing Indwelling Catheter: Surgical Procedure Date of Insertion: 06/03/17 Time of Insertion: 22:28 Assessment/Plan - Problems/Diagnosis (1) Fracture of left hip Problem: Acute Narrative: Had LT hip repair 06/04/17. Follow Ortho recommendation: Anticoagulation, pain control, WBAT, PT/OT, Bowel regimen, Push IS. (2) Chronic kidney disease, stage 4, severely decreased GFR Problem: Chronic Narrative: Is at baseline. Provide gently IVF hydration but monitor for fluid overload. Continue sodium Bicarb. BMP in am. Laboratory Tests 11/22/16 04/29/17 05/20/17 13:21 08:00 07:50 Creatinine 2.45 H 2.27 H 2.36 H 06/02/17 06/03/17 06/04/17 13:03 16:02 05:30 Creatinine 2.24 H 2.31 H 2.18 H (3) Heart failure Problem: Suspected Narrative: Monitor fluid balance closely.The CXR shows cardiomegaly and possible increased vascular congestion. He is noted to have Bilateral Non -pitting edema. He is not SOB and is already on Lasix PO. (4) HTN (hypertension) Problem: Chronic Qualifiers: Hypertension type: essential hypertension Qualified Code(s): I10 - Essential (primary) hypertension Narrative: Stable- Continue Valsartan & Metoprolol (5) Gout Problem: Chronic Narrative: Stable- On Allopurinol. (6) Thrombocytopenia Problem: Chronic Narrative: Is of unclear etiology. Laboratory Tests 10/14/15 04/05/16 05/04/16 08:00 07:34 12:16 Plt Count 77 L 83 L 79 L 11/01/16 11/22/16 04/29/17 13:12 13:21 08:00 Plt Count 110 L 76 L 77 L (7) CVA (cerebral vascular accident) Problem: Chronic Narrative: Stable- On Aspirin & Statin therapy. (8) Back pain Problem: Chronic (9) Peripheral neuropathy Problem: Chronic
[2017-06-05] MEDS: oxyCODONE HCL/ACETAMINOPHEN 1 TAB TABLET PO PRN ×4 (00:52→20:12)
[2017-06-05] MEDS: ceFAZolin SODIUM/DEXTROSE,ISO 2 GM/50 ML BAG IV SCH (01:59)
[2017-06-05 05:55] LABS: Hematocrit 30.8 % (42.0-52.0); Hemoglobin 9.9 gm/dL (13.5-18.0); Mean Corpuscular Hemoglobin 33.1 pg (27-31); Mean Corpuscular Hgb Conc 32.1 g/dl (32-36); Mean Platelet Volume 10.8 fl (6.0-9.5); Platelet Count 68 K/mm3 (150-450); Red Blood Count 2.99 M/mm3 (4.7-6.0); White Blood Count 13.7 K/mm3 (4.0-10.5)
[2017-06-05] MEDS: DEXTROSE 5%-LACTATED RINGERS 1,000 ML IV PRN (05:59)
[2017-06-05 06:06] LABS: Anion Gap 15.4 mmol/L (6.8-13.8); BUN/Creatinine Ratio 10.7 (9.0-21.6); Calcium * 7.9 mg/dL (7.9-10.9); Carbon Dioxide 23.9 mmol/L (24-32.6); Potassium 4.3 mmol/L (3.4-4.6)
[2017-06-05] MEDS: LEVOTHYROXINE SODIUM 100 MCG TABLET PO SCH (06:43)
--- NOTE | 2017-06-05 08:50 | PN ---
Subjective - Date and Time Seen Date: 06/05/17 Subjective Narrative: No events overnight. Pain controlled this am. No complaints. Objective - Vitals Vitals: Last Vital Signs Temp 36.6 C 06/05/17 07:30 Pulse 78 06/05/17 07:30 Resp 18 06/05/17 07:30 BP 146/76 06/05/17 07:30 Pulse Ox 98 06/05/17 07:30 - Abnormal Lab Findings Abnormal Lab Findings: Abnormal Lab Results 06/05/17 06/05/17 Range/Units 05:45 05:45 WBC 13.7 H D (4.0-10.5) K/mm3 RBC 2.99 L (4.7-6.0) M/mm3 Hgb 9.9 L (13.5-18.0) gm/dL Hct 30.8 L (42.0-52.0) % MCV 103.0 H (78-100) fl MCH 33.1 H (27-31) pg RDW 15.0 H (11.5-14.0) % Plt Count 68 L (150-450) K/mm3 MPV 10.8 H (6.0-9.5) fl Plasma Sodium 143 H (130-142) mmol/L Chloride 107 H (97-106) mmol/L Carbon Dioxide 23.9 L (24-32.6) mmol/L Anion Gap 15.4 H (6.8-13.8) mmol/L BUN 24 H (6-23) mg/dL Creatinine 2.25 H (0.4-1.4) mg/dL Est GFR (Non-Af Amer) 31 L (60-130) mL/min Random Glucose 153 H (70-110) mg/dL - Exam Exam Narrative: Gen: A&Ox3, NAD Resp: breathing non-labored on RA MSK: LLE--> dressings c/d/i, / EHL/FHL/DF/PF, SILT, cap refill brisk Cauti Physician Documentation - Urinary Catheter Management Urethral (Gray) Urethral Indwelling: Yes Date of Insertion: 06/03/17 Time of Insertion: 22:28 Assessment/Plan Plan Narrative: 67 yo M w/ displaced L femoral neck fracture s/p L cemented WILLIAM, POD #1. - WBAT, anterior hip precautions - reg diet - oral pain meds - Hgb 9.9 this am, monitor closely - PT/OT - DVT ppx: lovenox/SCDs/teds - continue Medicine co-management - dispo: continue inpatient care - Problems/Diagnosis (1) Fracture of left hip Problem: Acute
[2017-06-05] MEDS: METOPROLOL SUCCINATE 100 MG TABLET.SA PO SCH (09:39)
[2017-06-05] MEDS: ENOXAPARIN SODIUM 40 MG/0.4 ML SYRG SC SCH (09:39)
[2017-06-05] MEDS: SODIUM BICARBONATE 650 MG TABLET PO SCH ×3 (09:40→20:11)
[2017-06-05] MEDS: FUROSEMIDE 40 MG TABLET PO SCH ×2 (09:40→20:10)
[2017-06-05] MEDS: FLUOCINONIDE 15 APPL TUBE TP SCH ×2 (09:40→20:11)
[2017-06-05] MEDS: LOSARTAN POTASSIUM 50 MG TABLET PO SCH (10:24)
[2017-06-05] MEDS: ROSUVASTATIN CALCIUM 10 MG TABLET PO SCH (10:24)
[2017-06-05] MEDS: ALLOPURINOL 300 MG TABLET PO SCH (10:33)
--- NOTE | 2017-06-05 11:12 | PN ---
Subjective - Date and Time Seen Date: 06/05/17 Time: 11:08 Subjective Narrative: Patient seen and examined at bedside. No acute issues overnight. No BM since surgery. Awaiting PT evaluation and treatment and then will remove Gray catheter. Pain adequately controlled at the time of my exam. Objective - Review of Systems Generalized/Overall Review: Reports: No Symptoms Reported EENTM: Reports: No Symptoms Reported Respiratory: Reports: No Symptoms Reported Cardiac: Reports: No Symptoms Reported Abdominal: Reports: No Symptoms Reported Genitourinary Symptoms: Reports: No Symptoms Reported Musculoskeletal Complaints: Reports: Joint Pain - Left hip pain Neurological: Reports: No Symptoms Reported Skin: Reports: No Symptoms Reported Endocrine: Reports: No Symptoms Reported Misc: All systems neg except as marked - Vitals Vitals: Last Vital Signs Temp 37.4 C 06/05/17 10:46 Pulse 72 06/05/17 10:46 Resp 18 06/05/17 10:46 BP 133/64 06/05/17 10:46 Pulse Ox 98 06/05/17 10:46 - Abnormal Lab Findings Abnormal Lab Findings: Abnormal Lab Results 06/05/17 06/05/17 Range/Units 05:45 05:45 WBC 13.7 H D (4.0-10.5) K/mm3 RBC 2.99 L (4.7-6.0) M/mm3 Hgb 9.9 L (13.5-18.0) gm/dL Hct 30.8 L (42.0-52.0) % MCV 103.0 H (78-100) fl MCH 33.1 H (27-31) pg RDW 15.0 H (11.5-14.0) % Plt Count 68 L (150-450) K/mm3 MPV 10.8 H (6.0-9.5) fl Plasma Sodium 143 H (130-142) mmol/L Chloride 107 H (97-106) mmol/L Carbon Dioxide 23.9 L (24-32.6) mmol/L Anion Gap 15.4 H (6.8-13.8) mmol/L BUN 24 H (6-23) mg/dL Creatinine 2.25 H (0.4-1.4) mg/dL Est GFR (Non-Af Amer) 31 L (60-130) mL/min Random Glucose 153 H (70-110) mg/dL - Exam Constitutional: Present: Alert, Oriented x3, Cooperative, No distress ENT Exam: Present: moist mucous membranes Respiratory: Present: lungs clear, normal breath sounds, no respiratory distress , no accessory muscle use Cardiovascular/Chest: Present: regular rate, rhythm, systolic murmur, edema - 1 + pitting edema in left lower extremity. Trace pitting edema in right lower extremity. Abdomen: Present: soft, nontender, nondistended, hypoactive Extremity: Present: lower extremity edema - 1+ pitting edema in left lower extremity. Trace pitting edema in right lower extremity., other - s/p left total hip arthroplasty with postoperative dressings in place Skin Exam: Present: warm/dry, no cyanosis Neurologic: Present: other - Mask facies Cauti Physician Documentation - Urinary Catheter Management Urethral (Gray) Urethral Indwelling: Yes Date of Insertion: 06/03/17 Time of Insertion: 22:28 Assessment/Plan Plan Narrative: -Left femoral neck fracture secondary to a mechanical fall s/p left cemented total hip arthroplasty on 06/04/[address] Viera. -Chronic macrocytic anemia with acute postoperative anemia. No signs of active bleeding. B12 level checked on 04/29/2017 with results showing an elevated B12 level at 1626. Folate level checked on 11/22/2016 with results showing a normal folate level at 16.8. -Continue patients home beta rachel, metoprolol succinate, perioperatively -CKD Stage 4 with baseline creatinine 2.3-2.5 -Chronic thrombocytopenia with baseline platelet count around 70-90 -Pain control and VTE prophylaxis per ortho postoperatively. Patient states that his pain is adequately controlled at the time of my exam. -Discontinue telemetry -PT evaluation and treatment -Patient will more than likely need SNF placement at discharge - Problems/Diagnosis (1) Fracture of left hip Problem: Acute Qualifiers: Encounter type: initial encounter Fracture type: closed Qualified Code(s) : S72.002A - Fracture of unspecified part of neck of left femur, initial encounter for closed fracture (2) Chronic kidney disease, stage 4, severely decreased GFR Problem: Chronic (3) Thrombocytopenia Problem: Chronic
[2017-06-05] MEDS: SENNOSIDES/DOCUSATE SODIUM 1 TAB TABLET PO SCH (20:10)
[2017-06-06] MEDS: oxyCODONE HCL/ACETAMINOPHEN 1 TAB TABLET PO PRN ×3 (02:10→19:54)
[2017-06-06 06:01] LABS: Hematocrit 28.9 % (42.0-52.0); Hemoglobin 9.4 gm/dL (13.5-18.0); Mean Cell Volume 102.8 fl (78-100); Mean Corpuscular Hemoglobin 33.5 pg (27-31); Mean Corpuscular Hgb Conc 32.5 g/dl (32-36); Mean Platelet Volume 11.4 fl (6.0-9.5); Platelet Count 65 K/mm3 (150-450); Red Blood Count 2.81 M/mm3 (4.7-6.0); Red Cell Distribution Width 15.2 % (11.5-14.0); White Blood Count 9.4 K/mm3 (4.0-10.5)
[2017-06-06 06:18] LABS: Anion Gap 13.9 mmol/L (6.8-13.8); BUN/Creatinine Ratio 12.4 (9.0-21.6); Calcium * 7.8 mg/dL (7.9-10.9); Carbon Dioxide 24.2 mmol/L (24-32.6); Estimated Creat Clear 29.7; Potassium 4.1 mmol/L (3.4-4.6)
[2017-06-06] MEDS: LEVOTHYROXINE SODIUM 100 MCG TABLET PO SCH (06:54)
--- NOTE | 2017-06-06 08:47 | PN ---
Subjective - Date and Time Seen Date: 06/06/17 Subjective Narrative: No events overnight. Pain controlled this am. No complaints. Objective - Vitals Vitals: Last Vital Signs Temp 37.3 C 06/06/17 06:43 Pulse 75 06/06/17 06:43 Resp 18 06/06/17 06:43 BP 116/61 06/06/17 06:43 Pulse Ox 95 06/06/17 06:43 - Abnormal Lab Findings Abnormal Lab Findings: Abnormal Lab Results 06/06/17 06/06/17 Range/Units 05:45 05:45 RBC 2.81 L (4.7-6.0) M/mm3 Hgb 9.4 L (13.5-18.0) gm/dL Hct 28.9 L (42.0-52.0) % MCV 102.8 H (78-100) fl MCH 33.5 H (27-31) pg RDW 15.2 H (11.5-14.0) % Plt Count 65 L (150-450) K/mm3 MPV 11.4 H (6.0-9.5) fl Anion Gap 13.9 H (6.8-13.8) mmol/L BUN 31 H (6-23) mg/dL Creatinine 2.50 H (0.4-1.4) mg/dL Est GFR (Non-Af Amer) 27 L (60-130) mL/min Calcium 7.8 L (7.9-10.9) mg/dL - Exam Exam Narrative: Gen: A&Ox3, NAD Resp: breathing non-labored on RA MSK: LLE--> dressings c/d/i, / EHL/FHL/DF/PF, SILT, cap refill brisk Cauti Physician Documentation - Urinary Catheter Management Urethral (Gray) Urethral Indwelling: Yes Date of Insertion: 06/03/17 Time of Insertion: 22:28 Date of Removal: 06/05/17 Time of Removal: 09:03 Assessment/Plan Plan Narrative: 67 yo M w/ displaced L femoral neck fracture s/p L cemented WILLIAM, POD #2. - WBAT, anterior hip precautions - reg diet - oral pain meds - Hgb 9.4 this am, monitor closely - PT/OT - DVT ppx: lovenox/SCDs/teds - continue Medicine co-management - dispo: continue inpatient care - Problems/Diagnosis (1) Fracture of left hip Problem: Acute Qualifiers: Encounter type: initial encounter Fracture type: closed Qualified Code(s) : S72.002A - Fracture of unspecified part of neck of left femur, initial encounter for closed fracture
[2017-06-06] MEDS ORDERED: CYANOCOBALAMIN 1,000 MCG TABLET PO SCH (09:00)
[2017-06-06] MEDS: ROSUVASTATIN CALCIUM 10 MG TABLET PO SCH (09:03)
[2017-06-06] MEDS: LOSARTAN POTASSIUM 50 MG TABLET PO SCH (09:03)
[2017-06-06] MEDS: ALLOPURINOL 300 MG TABLET PO SCH (09:04)
[2017-06-06] MEDS: FLUOCINONIDE 15 APPL TUBE TP SCH ×2 (09:04→21:06)
[2017-06-06] MEDS: METOPROLOL SUCCINATE 100 MG TABLET.SA PO SCH (09:04)
[2017-06-06] MEDS: FUROSEMIDE 40 MG TABLET PO SCH ×2 (09:04→21:06)
[2017-06-06] MEDS: SODIUM BICARBONATE 650 MG TABLET PO SCH ×2 (09:04→21:07)
[2017-06-06] MEDS: ENOXAPARIN SODIUM 40 MG/0.4 ML SYRG SC SCH (10:56)
--- NOTE | 2017-06-06 13:51 | PN ---
Subjective - Date and Time Seen Date: 06/06/17 Time: 13:46 Subjective Narrative: Patient seen and examined at bedside. No acute issues overnight. No BM since surgery. Patient urinated without issues following Gray catheter removal. Pain adequately controlled at the time of my exam. Objective - Review of Systems Generalized/Overall Review: Reports: Weakness, Fatigue EENTM: Reports: No Symptoms Reported Respiratory: Reports: No Symptoms Reported Cardiac: Reports: No Symptoms Reported Abdominal: Reports: No Symptoms Reported Genitourinary Symptoms: Reports: No Symptoms Reported Musculoskeletal Complaints: Reports: Joint Pain - Left hip pain Neurological: Reports: No Symptoms Reported Skin: Reports: No Symptoms Reported Endocrine: Reports: No Symptoms Reported Misc: All systems neg except as marked - Vitals Vitals: Last Vital Signs Temp 36.9 C 06/06/17 10:46 Pulse 77 06/06/17 10:46 Resp 20 06/06/17 10:46 BP 130/67 06/06/17 10:46 Pulse Ox 94 06/06/17 10:46 - Abnormal Lab Findings Abnormal Lab Findings: Abnormal Lab Results 06/06/17 06/06/17 Range/Units 05:45 05:45 RBC 2.81 L (4.7-6.0) M/mm3 Hgb 9.4 L (13.5-18.0) gm/dL Hct 28.9 L (42.0-52.0) % MCV 102.8 H (78-100) fl MCH 33.5 H (27-31) pg RDW 15.2 H (11.5-14.0) % Plt Count 65 L (150-450) K/mm3 MPV 11.4 H (6.0-9.5) fl Anion Gap 13.9 H (6.8-13.8) mmol/L BUN 31 H (6-23) mg/dL Creatinine 2.50 H (0.4-1.4) mg/dL Est GFR (Non-Af Amer) 27 L (60-130) mL/min Calcium 7.8 L (7.9-10.9) mg/dL - Exam Constitutional: Present: Alert, Oriented x3, Cooperative, No distress ENT Exam: Present: moist mucous membranes Respiratory: Present: lungs clear, normal breath sounds, no respiratory distress , no accessory muscle use Cardiovascular/Chest: Present: regular rate, rhythm, systolic murmur, edema - Trace pitting edema in right lower extremity. 1+ pitting edema in left lower extremity. Abdomen: Present: Normal bowel sounds, soft, nontender Extremity: Present: lower extremity edema - Trace pitting edema in right lower extremity. 1+ pitting edema in left lower extremity., other - s/p left total hip arthroplasty with postoperative dressings in place Skin Exam: Present: warm/dry, no cyanosis Neurologic: Present: other - Masked facies Cauti Physician Documentation - Urinary Catheter Management Urethral (Gray) Urethral Indwelling: Yes Date of Insertion: 06/03/17 Time of Insertion: 22:28 Date of Removal: 06/05/17 Time of Removal: 09:03 Assessment/Plan Plan Narrative: IMPRESSION AND PLAN: -Left femoral neck fracture secondary to a mechanical fall s/p left cemented total hip arthroplasty on 06/04/[address] Viera. -Chronic macrocytic anemia with acute postoperative anemia. No signs of active bleeding. B12 level checked on 04/29/2017 with results showing an elevated B12 level at 1626. Folate level checked on 11/22/2016 with results showing a normal folate level at 16.8. -Continue patients home beta rachel, metoprolol succinate, perioperatively -CKD Stage 4 with baseline creatinine 2.3-2.5 -Chronic thrombocytopenia with baseline platelet count around 70-90 -Pain control and VTE prophylaxis per ortho postoperatively. Patient states that his pain is adequately controlled at the time of my exam. -PT evaluation and treatment -Patient's will tour [facility] later today with tentative plan for the patient to be discharged to SNF at [facility] tomorrow, 06/07/2017. - Problems/Diagnosis (1) Fracture of left hip Problem: Acute Qualifiers: Encounter type: initial encounter Fracture type: closed Qualified Code(s) : S72.002A - Fracture of unspecified part of neck of left femur, initial encounter for closed fracture (2) Chronic kidney disease, stage 4, severely decreased GFR Problem: Chronic (3) Thrombocytopenia Problem: Chronic
[2017-06-06] MEDS: SENNOSIDES/DOCUSATE SODIUM 1 TAB TABLET PO SCH (21:07)
[2017-06-07] MEDS: LEVOTHYROXINE SODIUM 100 MCG TABLET PO SCH (06:26)
--- NOTE | 2017-06-07 07:47 | PN ---
Progess Note - Interim Narrative: 06/07/17 07:45 S: No events overnight. Pain controlled. Making progress with PT. O: vitals wnl Gen: A&Ox3, NAD Resp: breathing non-labored on RA MSK: LLE--> dressings c/d/i, 5/ EHL/FHL/DF/PF, SILT, cap refill brisk A/P: 67 yo M w/ displaced L femoral neck fracture s/p L cemented WILLIAM, POD #3. - WBAT, anterior hip precautions - reg diet - oral pain meds - PT/OT - DVT ppx: lovenox/SCDs/teds - continue Medicine co-management - dispo: continue inpatient care Orthopedic Discharge Instructions: 1. WBAT, anterior hip precautions. 2. Reg diet 3. Inspect Prineo dressing and incision daily. If any drainage or if dressing is peeling up, notify the Orthopedic office immediately and keep wound dressed with gauze and tape. If dressing/incision looks ok, may leave uncovered and patient may shower. 4. PT for progressive mobility. 5. DVT ppx: knee high teds, lovenox for total of 10 days from surgery. 6 weeks of 325 mg ASA daily following course of lovenox. 6. Follow up in Orthopedic clinic 2 weeks from surgery ([phone]). 06/07/17 07:47
[2017-06-07] MEDS: ROSUVASTATIN CALCIUM 10 MG TABLET PO SCH (08:34)
[2017-06-07] MEDS: FLUOCINONIDE 15 APPL TUBE TP SCH ×2 (08:34→21:11)
[2017-06-07] MEDS: FUROSEMIDE 40 MG TABLET PO SCH ×2 (08:34→16:00)
[2017-06-07] MEDS: LOSARTAN POTASSIUM 50 MG TABLET PO SCH (08:34)
[2017-06-07] MEDS: SODIUM BICARBONATE 650 MG TABLET PO SCH ×2 (08:35→21:09)
[2017-06-07] MEDS: METOPROLOL SUCCINATE 100 MG TABLET.SA PO SCH (08:35)
[2017-06-07] MEDS: ALLOPURINOL 300 MG TABLET PO SCH (08:35)
[2017-06-07] MEDS: POLYETHYLENE GLYCOL 3350 119 GM BTL PO SCH (08:35)
[2017-06-07] MEDS ORDERED: ERGOCALCIFEROL 50000 UNIT TABLET PO SCH (09:00)
[2017-06-07] MEDS: ENOXAPARIN SODIUM 40 MG/0.4 ML SYRG SC SCH (10:13)
--- NOTE | 2017-06-07 13:53 | PN ---
Subjective - Date and Time Seen Date: 06/07/17 Time: 09:00 Subjective Narrative: Patient seen and examined at bedside. Patient states he was up all night urinating secondary to receiving his Lasix at 9 PM. I have adjusted his Lasix order so that he will receive his BID Lasix at 9 AM and 3 PM daily. No BM since surgery but patient feels like he could have one in the near future. Pain adequately controlled at the time of my exam. Objective - Review of Systems Generalized/Overall Review: Reports: No Symptoms Reported EENTM: Reports: No Symptoms Reported Respiratory: Reports: No Symptoms Reported Cardiac: Reports: No Symptoms Reported Abdominal: Reports: No Symptoms Reported Genitourinary Symptoms: Reports: No Symptoms Reported Musculoskeletal Complaints: Reports: Other - Left hip pain Neurological: Reports: No Symptoms Reported Skin: Reports: No Symptoms Reported Endocrine: Reports: No Symptoms Reported Misc: All systems neg except as marked - Vitals Vitals: Last Vital Signs Temp 36.3 C L 06/07/17 10:33 Pulse 77 06/07/17 10:33 Resp 20 06/07/17 10:33 BP 150/79 06/07/17 10:33 Pulse Ox 96 06/07/17 10:33 - Exam Constitutional: Present: Alert, Oriented x3, Cooperative, No distress ENT Exam: Present: moist mucous membranes Respiratory: Present: lungs clear, normal breath sounds, no respiratory distress , no accessory muscle use Cardiovascular/Chest: Present: regular rate, rhythm, systolic murmur, edema - Trace pitting edema in right lower extremity. 1+ pitting edema in left lower extremity. Abdomen: Present: Normal bowel sounds, soft, nontender, obese Extremity: Present: lower extremity edema - Trace pitting edema in right lower extremity. 1+ pitting edema in left lower extremity., other - s/p left total hip arthroplasty with postoperative dressings in place Skin Exam: Present: warm/dry, no cyanosis Neurologic: Present: alert, oriented x 3, other - masked facies Cauti Physician Documentation - Urinary Catheter Management Urethral (Gray) Urethral Indwelling: Yes Date of Insertion: 06/03/17 Time of Insertion: 22:28 Date of Removal: 06/05/17 Time of Removal: 09:03 Assessment/Plan Plan Narrative: IMPRESSION AND PLAN: -Left femoral neck fracture secondary to a mechanical fall s/p left cemented total hip arthroplasty on 06/04/[address] Viera. -Chronic macrocytic anemia with acute postoperative anemia. No signs of active bleeding. B12 level checked on 04/29/2017 with results showing an elevated B12 level at 1626. Folate level checked on 11/22/2016 with results showing a normal folate level at 16.8. -Continue patients home beta rachel, metoprolol succinate, perioperatively -CKD Stage 4 with baseline creatinine 2.3-2.5 -Chronic thrombocytopenia with baseline platelet count around 70-90 -Pain control and VTE prophylaxis per ortho postoperatively. -PT evaluation and treatment -Patient is medically stable for discharge once placement has been arranged. - Problems/Diagnosis (1) Fracture of left hip Problem: Acute Qualifiers: Encounter type: initial encounter Fracture type: closed Qualified Code(s) : S72.002A - Fracture of unspecified part of neck of left femur, initial encounter for closed fracture (2) Chronic kidney disease, stage 4, severely decreased GFR Problem: Chronic (3) Thrombocytopenia Problem: Chronic
[2017-06-07] MEDS: SENNOSIDES/DOCUSATE SODIUM 1 TAB TABLET PO SCH (21:08)
[2017-06-08] MEDS: LEVOTHYROXINE SODIUM 100 MCG TABLET PO SCH (07:07)
[2017-06-08] MEDS: SODIUM BICARBONATE 650 MG TABLET PO SCH (08:59)
[2017-06-08] MEDS: ROSUVASTATIN CALCIUM 10 MG TABLET PO SCH (08:59)
[2017-06-08] MEDS: METOPROLOL SUCCINATE 100 MG TABLET.SA PO SCH (08:59)
[2017-06-08] MEDS: FUROSEMIDE 40 MG TABLET PO SCH ×2 (08:59→14:56)
[2017-06-08] MEDS: ALLOPURINOL 300 MG TABLET PO SCH (08:59)
[2017-06-08] MEDS: LOSARTAN POTASSIUM 50 MG TABLET PO SCH (08:59)
[2017-06-08] MEDS: POLYETHYLENE GLYCOL 3350 119 GM BTL PO SCH (09:00)
[2017-06-08] MEDS: ENOXAPARIN SODIUM 40 MG/0.4 ML SYRG SC SCH (09:00)
[2017-06-08] MEDS: FLUOCINONIDE 15 APPL TUBE TP SCH (09:02)
--- NOTE | 2017-06-08 10:02 | DS ---
(1) Fracture of left hip Problem: Acute Qualifiers: Encounter type: initial encounter Fracture type: closed Qualified Code(s) : S72.002A - Fracture of unspecified part of neck of left femur, initial encounter for closed fracture (2) Chronic kidney disease, stage 4, severely decreased GFR Problem: Chronic (3) Thrombocytopenia Problem: Chronic (4) Hypertension, benign essential, goal below 140/90 Problem: Chronic (5) Ischemic stroke Problem: Chronic (6) Macrocytic anemia Problem: Chronic (7) Acute blood loss as cause of postoperative anemia Problem: Acute (8) Hypothyroidism Problem: Chronic (9) Vitamin D deficiency Problem: Chronic (10) Gout Problem: Chronic Description of Stay: ADMISSION DATE: 06/03/2017 DISCHARGE DATE: 06/08/2017 ADMISSION HPI BY KIKO GRACIA: Mr. Caal is a 67-yr-old WM pt of Dr. Nanda Moore with a PMH of: Athritis, CVA, CKD stage IV, Degenerative Disc Disease, Gout, Hypothyroidism, Peripheral Neuropathy,Spinal Stenosis, & Thrombocytopenia. Pt states that he tripped on his foot while walking at home leading him to fall. He landed on the LT side of body. He denies his head hitting surface or any object and there was no loss of consciousness. EMS was called and he was brought to [facility] ER. At the ED, the Hip/Pelvis X-ray film showed he sustained a LT hip fracture. Orthopedic Surgeon , (), was consulted by the ERP and he plans to perform surgical repair tomorrow. Pt denies fevers, chills. He also denies N/V,Abd. Pain, chest pain & SOB. He will need to be admitted inpatient for a minimum of 2 midnights due to the need for surgical procedure that requires pre & post operative management. PROBLEM BASED HOSPITAL COURSE: Left femoral neck fracture secondary to a mechanical fall s/p left cemented total hip arthroplasty on 06/04/[address] Viera -Patients home beta rachel was continued perioperatively -Inspect Prineo dressing and incision daily. If any drainage or if dressing is peeling up, notify the Orthopedic office immediately and keep wound dressed with guaze and tape. If dressing/incision looks ok, may leave uncovered and patient may shower. -DVT ppx: knee high ALAN hose bilaterally, lovenox X 10 days from surgery, 6 weeks of ASA 325mg PO daily following course of lovenox. -PT for progressive mobility -Weightbearing as tolerated, anterior hip precautions Chronic macrocytic anemia with acute postoperative anemia -No signs of active bleeding. -B12 level checked on 04/29/2017 with results showing an elevated B12 level at 1626. Folate level checked on 11/22/2016 with results showing a normal folate level at 16.8. CHRONIC STABLE MEDICAL CONDITIONS: Benign essential hypertension: Blood pressure is less than 140/90 mmHg. Continue home antihypertensive regimen. History of ischemic stroke: Masked facies at baseline. Continue home aspirin and statin. CKD Stage 4: Baseline creatinine 2.3-2.5 Chronic thrombocytopenia: Baseline platelet count around 70-90. Hypothyroidism: Continue home dose of levothyroxine. Gout: Continue home dose of allopurinol. Vitamin D deficiency: Continue home dose of vitamin D supplementation. DISPOSITION: The patient was discharged to SNF at [facility] in stable condition and he will be followed by [facility] physician during his stay there. FOLLOW-UP APPOINTMENTS: -Follow up with Orthopedics TuesdayJune 17 at 10:15 AM NEW OR CHANGED MEDICATIONS: -Lovenox 30 mg subcutaneously daily 6 days (patient will receive final dose on 06/14/2017). Of note, Lovenox dose was decreased to 30mg due to the patients creatinine clearance being less than 30 mL/min. -Aspirin 325 mg PO daily X 6 weeks starting on 06/15/2017 (patient will receive final dose on 07/27/2017) -Percocet 5-325mg 1-2 tabs PO Q4H PRN severe pain (use Tylenol as first line pain medication; max dose of 4000mg of acetaminophen per 24 hours) DISCONTINUED MEDICATIONS: -Hold home Aspirin 81mg PO daily with orders to resume on 07/28/2017 RADIOLOGY REPORTS: Single view chest x-ray on 06/03/2017 showed: Hyperinflated lungs. Increased vascular markings in the lungs, which could be artifactual from hypoinflation and supine technique but consider mild pulmonary venous congestion. Large cardiomegaly. Thoracic aortic atherosclerotic disease. Left hip and pelvis x-ray on 06/03/2017 showed: No acute osseous abnormality involving the pelvis. Left femoral neck fracture. Left hip and pelvis x-ray on 06/04/2017 showed: No acute osseous abnormality involving the AP pelvis. Status post left total hip replacement with good postoperative alignment. Procedures Performed: see notes below List Procedures: Date: 06/04/2017 Preoperative diagnosis: Closed left hip displaced femoral neck fracture. Postoperative diagnosis: Closed left hip displaced femoral neck fracture Procedure: Left cemented total hip arthroplasty. Surgeon: Jeremy Viera M.D. Software Support Technician: Alan David PA-C Anesthesia: Gen. Complications: None Specimens: Bone for disposal, synovial tissue for permanent section Estimated blood loss: 200 milliliters. Retained implants: Depuy Coamo size 6 basic cemented femoral stem. Size 58 millimeter ouside diameter 3-hole Acworth Gription acetabular cup. 58 millimeter outside by 36 millimeter inside diameter highly cross-linked acetabular liner. 36 millimeter diameter + 12 millimeter cobalt chromium femoral head. Cancellous 6.5mm screw 30 millimeter length. Indications: Bolivar Is a 67-year-old male community ambulator. This patient was evaluated on the floor and found to have sustained a displaced femoral neck fracture. The risks and benefits were discussed with the patient as well as any power of [place] attorney. Patient wished to proceed with surgical treatment. The risks, benefits, and alternatives discussed were , blood clots, bleeding, infection, nerve/tendon blood vessel/ injury, malposition of components, dislocation and/or instability of joint, intraoperative fracture, postoperative limited range of motion, persistent pain, failure of components, and need for additional procedures. Patient wished to proceed. Consent was obtained after answering all questions. Procedure: After marking the correct extremity on the floor, the patient was taken to the operating room. A timeout was performed. IV antibiotics consisting of 2 g of Ancef were administered prior to the procedure. A general anesthetic was induced by anesthesia. The patient was then transitioned to a lateral position on a well-padded pegboard. And an axillary roll was placed. The head was in neutral position. The non-operative down leg was well-padded with SCD and ALAN hose in place. The arms were supported and padded to protect from any undue pressure on the bony prominences and nerves. Well-padded anterior and posterior pelvic and chest posts were secured in order to maintain a stable position of the pelvis. This was placed so that the pelvis was perpendicular to the floor. The body was in line with the pelvis. Once it was felt that we had protected all the bony prominences and the patient was well secured with a safety belt as well, the leg was pre-scrubbed with alcohol, prepped and draped in a standard sterile fashion. A standard anterior lateral hip incision was marked out over the greater trochanter. Ioban drapes were then placed. The skin incision was then made. Sharp dissection with a scalpel utilizing cautery for hemostasis was carried out down to the gluteus and iliotibial band fascia. This was split in line with the skin incision. The greater trochanter bursa was excised. 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 We also encountered a large amount of proliferative tissue surrounding the chronically torn abductor which was brownish in color. This had an appearance similar to PVNS, so we proceeded to debride as much of this tissue as we could and we sent it for permanent section. Was left of the anterior 1/3 of the tendon was tagged and reflected off the greater trochanter. This exposed the underlying hip joint capsule. An inverted T-type capsulotomy was made extending this up to the brim of the acetabulum. We encountered a hematoma at this point confirming an acute fracture as well as noted displacement of the femoral neck fracture. We did not encounter any more of this proliferative-looking tissue inside the joint. Using Eduar retractors to assist with elevation of the soft tissues off the anterior, superior, and inferior aspects of the femoral neck, the hip was then placed in a figure 4 position and the femoral neck cleanup cut was then made. With the leg in an externally rotated and adducted position, the cutting flag was utilized in order to petra for a standard femoral neck cut approximately a fingerbreadth above the level of the lesser trochanter. This was done while protecting the surrounding soft tissues with Eduar retractors. The femoral head was then removed and sized for guidance on the size of the acetabular shell. It was noted that there was mild loss of articular cartilage on both the femoral head and weightbearing portions of the acetabulum. We then returned the leg to the table and turned our attention to the acetabulum. While protecting the surrounding soft tissues, the labrum and remaining tissue in the fovea were excised using a scalpel and cautery. A series of reamers up to size 57 millimeter were utilized to prepare the acetabulum. The final reamer had good purchase and exposed the bleeding subchondral bone. The acetabulum was then thoroughly irrigated ensuring that all bony and cartilaginous materials were removed and the final acetabular shell was impacted into place. This was placed in approximately 45 degrees of abduction and 20 degrees of anteversion utilizing the outrigger and body axis for alignment. This had a good press fit. One 6.5 x 30mm cancellous screw was placed in the posterior superior quadrant of the acetabulum. The shell was then thoroughly irrigated and the final polyethylene was impacted into place ensuring that it seated completely. This was then protected with a sponge while we returned our attention to the femur. With the leg in a figure 4 position utilizing Eduar retractors for soft tissue protection, a box cutting osteotome, followed by Charbrittneyey awl, followed by serial broaches were utilized in order to prepare the femur. It was found that a size 6 broach gave good axial and rotational stability. The proximal femur was visualized to ensure that there were no signs of fracture. A series of heads were trialed. It was found that a + 12 mm femoral head gave good overall stability. There is minimal longitudinal instability. With the leg in the position of sleep the femoral head was well covered. Hip range of motion was able to reach full extension and external rotation to greater than 75 degrees prior to impingement along the posterior acetabulum. The hip was able to be flexed to greater than 90 degrees with internal rotation greater than 60 degrees prior to anterior impingement. The limb lengths were near equal based on comparison to the contralateral side. At this point was felt this was the appropriately sized femoral components as well as neck and femoral head. The trial implants were removed. A canal cement plug was placed distally and the canal was thoroughly irrigated using pulsatile vacuum brush device. The canal was then thoroughly dried with a suction device and canal sponge. Cement was vacuum mixed per the page designer' s instructions and placed into a cement gun. Cement was then placed in a dry irrigated femur and a moderate cementing technique using a pressurizing device. The stem was then placed in the appropriate version compared to her kenaitze anatomy and held in place while the cement cured and the extruded cement was removed. Once the cement was fully cured we ensured that the stem was stable and that there were no signs of fracture. The extruded cement was removed, and the joint and the capsule were thoroughly evaluated to ensure there are no cement fragments. Once was felt that we adequately removed the extra cement and that the joint was prepared for final implants, the final femoral head was then impacted in the place. The hip was then reduced and seated completely. The capsule was repaired with interrupted #1 Ethibond. What was left of the anterior abductor tendon was repaired to the greater trochanter utilizing #5 Ethibond through drill holes. This was oversewn with #1 Vicryl. The fascia was closed with interrupted #1 Vicryl. The wounds were thoroughly irrigated as we closed in layers. The deep fat layers were closed with 0 Vicryl and the dermis was approximated with interrupted 3-0 Vicryl. The skin was closed with a running subcuticular 3-0 monocryl and a Prineo dressing. All sponge, needle, blade, and instrument counts were correct prior to closing the wounds. Sterile dressings consisting of Xeroform, 4 x 4's, ABD, and tape were applied. The patient was awoken and transferred to his hospital bed and then to the postanesthesia care unit in stable condition. Postoperative condition: The plan is to return to the medical/surgical inpatient floor postoperatively. Postoperatively 24 hours of IV antibiotics, pain control, physical therapy, occupational therapy, and medical comanagement will be utilized. Patient will be weightbearing as tolerated with anterior hip precautions. Postoperative films will be obtained in the recovery room. Results and Findings: Laboratory Tests 06/03/17 06/03/17 06/04/17 16:02 16:02 02:06 Hgb 12.1 L Hct 36.2 L MCV 100.8 H Plt Count 69 L Sodium 142 Plasma Sodium 142 Potassium 4.2 Chloride 107 H Carbon Dioxide 23.1 L Anion Gap 16.1 H BUN 28 H Creatinine 2.31 H Est GFR (Non-Af Amer) 30 L BUN/Creatinine Ratio 12.1 Random Glucose 119 H Calcium 8.9 Calcium Adj for Albumin 9.1 Total Bilirubin 1.6 H AST 43 ALT 34 Alkaline Phosphatase 160 Troponin I Less than 0.017 Total Protein 6.8 Albumin 3.3 L 06/06/17 06/06/17 05:45 05:45 Hgb 9.4 L Hct 28.9 L MCV 102.8 H Plt Count 65 L Sodium 139 Plasma Sodium 139 Potassium 4.1 Chloride 105 Carbon Dioxide 24.2 Anion Gap 13.9 H BUN 31 H Creatinine 2.50 H Est GFR (Non-Af Amer) 27 L BUN/Creatinine Ratio 12.4 Random Glucose 103 D Calcium 7.8 L Calcium Adj for Albumin Total Bilirubin AST ALT Alkaline Phosphatase Troponin I Total Protein Albumin Discharge Disposition: Other HealthCare facility Disposition: Other health care facility Condition: Stable Discharge Activity: Activity as tolerated - WBAT, anterior hip precautions Discharge Diet: General/regular food Discharge Level of Care:: SNF - Care Home Care Home Therapy: Physicial Therapy, Occupation Therapy Referrals: Nanda Moore DO [Primary Care Provider] - Problem Oriented Discharge Instructions to Patient/Family: Total Hip Replacement, [id number] Additional Patient Instructions (free text): -Follow up with Orthopedics TuesdayJune 17 at 10:15 AM. -Inspect Prineo dressing and incision daily. If any drainage or if dressing is peeling up, notify the Orthopedic office immediately and keep wound dressed with guaze and tape. If dressing/incision looks ok, may leave uncovered and patient may shower. -PT for progressive mobility -DVT ppx: knee high ALAN hose bilaterally, lovenox X 10 days from surgery, 6 weeks of ASA 325mg PO daily following course of lovenox. Prescriptions (Any new or edited meds): Aspirin 81 mg PO DAILY #1 tab.chew Aspirin [Aspirin Enteric Coated] 325 mg PO DAILY #42 tablet. Enoxaparin Sodium [Lovenox] 30 mg SC Q24H 6 Days oxyCODONE HCL/ACETAMINOPHEN [Percocet 5 MG/325 MG] 1 - 2 tab PO Q4H PRN #50 tablet PRN Reason: Severe Pain Complete Home Medications List: Complete Home Medication List: Allopurinol [Zyloprim] 300 mg PO DAILY 06/03/17 Cyanocobalamin (Vitamin B-12) [Vitamin B12] 2,500 mcg PO 3XW 06/03/17 Diazepam [Valium] 5 - 10 mg PO TID PRN 06/03/17 Ergocalciferol (Vitamin D2) [Vitamin D2] 50,000 unit PO Q14D 06/03/17 Fluocinonide/Emollient Base [Fluocinonide-E 0.05% Cream] 1 dose TP BID 06/03/17 Levothyroxine Sodium [Synthroid] 200 mcg PO DAILY 06/03/17 Metoprolol Succinate [Toprol Xl] 100 mg PO DAILY 06/03/17 Rosuvastatin Calcium [Crestor] 10 mg PO DAILY 06/03/17 Sodium Bicarbonate 1,950 mg PO BID 06/03/17 Ubidecarenone [Co Q-10] 10 mg PO 3XW 06/03/17 Valsartan [Diovan] 320 mg PO DAILY 06/03/17 Acetaminophen [Tylenol] 1,000 mg PO Q6H PRN #0 tablet 06/08/17 Aspirin 81 mg PO DAILY #1 tab.chew 06/08/17 Aspirin [Aspirin Enteric Coated] 325 mg PO DAILY #42 tablet. 06/08/17 Enoxaparin Sodium [Lovenox] 30 mg SC Q24H 6 Days 06/08/17 Furosemide [Lasix] 40 mg PO BID@0900,1500 tablet 06/08/17 Polyvinyl Alcohol [Artificial Tears] 1 drop EACHEYE Q2H PRN #0 btl 06/08/17 Sennosides/Docusate Sodium [Senokot-S] 2 tab PO HS tablet 06/08/17 oxyCODONE HCL/ACETAMINOPHEN [Percocet 5 MG/325 MG] 1 - 2 tab PO Q4H PRN #50 tablet 06/08/17
[2017-06-08 14:54] VITALS: BP 139/77
== END 2017-06-08 17:18 | DRG 470 ==
LOC: ER 15:46 → MS 17:13
PROVIDERS: ADMIT Internal Medicine; ATTEND Internal Medicine
PROC: 0SRB0J9 Replacement of Left Hip Joint with Synthetic Substitute, Cemented, Open Approach (ICD-10-PCS; principal; 2017-06-04 08:00)
DX: S72.032A Displaced midcervical fracture of left femur, initial encounter for closed fracture (principal); D62 Acute posthemorrhagic anemia; N18.4 Chronic kidney disease, stage 4 (severe); W01.0XXA Fall on same level from slipping, tripping and stumbling without subsequent striking against object, initial encounter; Y92.009 Unspecified place in unspecified non-institutional (private) residence as the place of occurrence of the external cause; I12.9 Hypertensive chronic kidney disease with stage 1 through stage 4 chronic kidney disease, or unspecified chronic kidney disease; D69.6 Thrombocytopenia, unspecified; E03.9 Hypothyroidism, unspecified
CPT/HCPCS: 27130; 36415; 71010; 73502; 80048; 80053; 84484; 85025; 85027; 85610; 85730; 86850; 86900; 88305; 88311; 88313; 93005; 97110; 97116; 97162; 97166; 97530; 97535; 99284; J2405

== ENCOUNTER 2017-08-22 20:26 | Emergency (ER) | payer MEDICARE, BC ==
--- NOTE | 2017-08-22 21:04 | ERNOTE ---
Lower Extremity HPI - General Lower Extremities Pain: hip: left Time Seen by Provider: 08/22/17 20:40 Source: patient, family - Exam Limitations: no limitations - Immun/Allergies/Home Medications Immunizations: IMMUNIZATION HX Immunizations Up to Date Yes History of Influenza Vaccine No Hx Pneumococcal Vaccination No Allergies/Adverse Reactions: Allergies Allergy/AdvReac Type Severity Reaction Status Date / Time adhesive Allergy Verified 08/22/17 20:45 iodine Allergy Verified 08/22/17 20:45 felodipine [From Plendil] AdvReac Verified 08/22/17 20:45 indomethacin AdvReac Verified 08/22/17 20:45 lorazepam [From Ativan] AdvReac Verified 08/22/17 20:45 meclizine AdvReac Verified 08/22/17 20:45 tizanidine AdvReac Verified 08/22/17 20:45 Home Medications: HOME MEDICATIONS Allopurinol [Zyloprim] 300 mg PO DAILY 06/03/17 [Last Taken Unknown] Cyanocobalamin (Vitamin B-12) [Vitamin B12] 2,500 mcg PO 3XW 06/03/17 [Last Taken Unknown] Diazepam [Valium] 5 - 10 mg PO TID PRN 06/03/17 [Last Taken Unknown] Ergocalciferol (Vitamin D2) [Vitamin D2] 50,000 unit PO Q14D 06/03/17 [Last Taken Unknown] Levothyroxine Sodium [Synthroid] 200 mcg PO DAILY 06/03/17 [Last Taken Unknown] Metoprolol Succinate [Toprol Xl] 100 mg PO DAILY 06/03/17 [Last Taken Unknown] Rosuvastatin Calcium [Crestor] 10 mg PO DAILY 06/03/17 [Last Taken Unknown] Sodium Bicarbonate 1,950 mg PO BID 06/03/17 [Last Taken Unknown] Ubidecarenone [Co Q-10] 10 mg PO 3XW 06/03/17 [Last Taken Unknown] Valsartan [Diovan] 320 mg PO DAILY 06/03/17 [Last Taken Unknown] Acetaminophen [Tylenol] 1,000 mg PO Q6H PRN #0 tablet 06/08/17 [Last Taken Unknown] Furosemide [Lasix] 40 mg PO BID@0900,1500 tablet 06/08/17 [Last Taken Unknown] Polyvinyl Alcohol [Artificial Tears] 1 drop EACHEYE Q2H PRN #0 btl 06/08/17 [ Last Taken Unknown] Sennosides/Docusate Sodium [Senokot-S] 2 tab PO HS tablet 06/08/17 [Last Taken Unknown] Aspirin 325 mg PO DAILY 08/22/17 [Last Taken Unknown] Carbidopa/Levodopa [Carbidopa-Levodopa 25-100 Tab] 1 each PO TID 08/22/17 [Last Taken Unknown] - History of Present Illness Narrative: Pt had shaking chills overnight and increased pain in his left hip that was replaced post fracture 2 months ago. He called orthopedics and was seen by Dr. Viera today. Blood was drawn but results not available at the visit. Dr. Viera called the patient around 18:00 when he saw the elevated WBC and called the patient and told them to come to the ED. Occurred: this morning Modifying Factors - (Worsens): Reports: movement Associated Symptoms: Reports: weakness Review of Systems - Review of Systems Constitutional: Present: recent illness, chills - shaking overnight EYE: Present: no symptoms reported ENT: Present: nose congestion, nasal drainage - x 2-3 weeks Respiratory: Present: cough Cardiology: Present: edema - as usual. Absent: chest pain Gastrointestinal/Abdominal: Absent: nausea, vomiting Genitourinary: Absent: frequency, pain Musculoskeletal: Present: See HPI Skin: Present: other - warmth and swelling over left hip Neurological: Absent: weakness, numbness Endocrine: Present: intolerance to cold Hematologic/Lymphatic: Present: no symptoms reported Psych: Present: no symptoms reported - Patient's Past Medical History Patient History - Medical: Arthritis, Hypothyroidism, Renal Failure, Other Patient History - Cardiac/Respiratory: CVA/Stroke, Hypertension Patient History - Cancer: No Hx of Cancer Patient History - Surgical Procedures: Cataracts, Colonoscopy, EGD, Total Knee Replacement, Vasectomy, Hernia Repair Patient History - Other: None - Family History Father Family History - Medical: Family History - Cardiac/Respiratory: No pertinent hx Family History - Cancer: No pertinent family hx Mother Family History - Medical: , Alzheimer's Disease Family History - Cardiac/Respiratory: No pertinent hx Family History - Cancer: No pertinent family hx - Social History Living Situations: home Abuse History: No History of abuse Psych History: No pertinent hx Smoking Status: Never smoker Have you smoked in the past 12 months: No Do you dip or chew tobacco: No Alcohol Use: rarely Drug Use: none - Immunizations Immunizations Up to Date: Yes Hx Pneumococcal Vaccination: No History of Influenza Vaccine: No Physical Exam - Physical Exam General Appearance: Present: wd/wn, alert, no apparent distress Head Exam: Present: normal inspection, no evidence of injury Ears, Nose, Throat: Present: nasal congestion Neck: Present: normal inspection, nontender Respiratory: Present: no respiratory distress, no accessory muscle use, lungs clear Cardiovascular/Chest: Present: regular rate, rhythm, no murmur Gastrointestinal/Abdominal: Present: normal bowel sounds, soft Extremity Exam: Present: decreased range of motion - left hip, bony tenderness - over lift, extremity edema - 2+ bilateral Neurological Exam: Present: alert, oriented, normal mood/affect, no motor/ sensory deficits Skin Exam: Present: warm/dry, other - surgical scar over left hip in good condition with mild redness around the scar. Lymphatic Exam: Present: no adenopathy ED Progress - Results and Orders Patient's Lab Results:: I have reviewed the patient's lab results. Results and Orders: Laboratory Tests 08/22/17 08/22/17 08/22/17 16:51 16:51 16:51 WBC 34.8 H Hgb 12.0 L Hct 35.9 L Plt Count 91 L Neutrophils % (Manual) 89 H ESR 27 H C-Reactive Prot, Quant 7.1 H - Vital Signs Patient's Vital Signs:: I have reviewed the patient's vital signs. Vital Signs: Vital Signs 08/22/17 08/22/17 20:37 20:43 Temperature 37.9 C H Pulse Rate 83 82 Respiratory 15 Rate Blood Pressure 137/66 O2 Sat by Pulse 98 Oximetry - X-Ray X-Ray #1 X-Ray: chest Interpretation: Reviewed by me X-ray Comments: IMPRESSION: Hypoventilatory changes with right basilar atelectasis versus airspace disease. Pulmonary vascular congestion. Additional findings and comments are as above. Electronically signed by Iván Robledo D.O.. - Progress/Reassessment Chief Complaint: Hip Pain/Injury Progress:: Unchanged Progress Note-Subjective: 08/22/17 21:14 Spoke with Lexii at the transfer center at the [facility] around 21:00. She will call back when she has a ED physician available 08/22/17 21:42 Received call back from [facility] and spoke with Dr. Krupa Elkins she agrees to accept the patient in transfer. Departure Clinical Impression: Septic arthritis of pelvic region and thigh region S/P hip replacement Qualifiers: Laterality: left Qualified Code(s): Z96.642 - Presence of left artificial hip joint - Departure [facility] Condition: Fair Referrals: Nanda Moore DO [Primary Care Provider] -
[2017-08-22 22:35] VITALS: BP 114/63
== END 2017-08-22 22:13 | disposition short-term general hospital (02) ==
LOC: ER 20:26
DX: M00.9 Pyogenic arthritis, unspecified (principal); Z96.642 Presence of left artificial hip joint; M25.552 Pain in left hip